=== PATIENT | female | born 1985 | race Caucasian/White ===

== ENCOUNTER 2018-12-12 06:54 | Inpatient (IN) | payer BC ==
[2018-12-12] MEDS ORDERED: Ampicillin 2 GM in Sodium Chloride 0.9% 100 ML IV ONE (07:35)
[2018-12-12] MEDS ORDERED: Nalbuphine 20 MG/ML 1 ML Syringe IVPUSH PRN (07:35)
[2018-12-12] MEDS ORDERED: Sodium Chloride 0.9% 10 ML Syringe FLUSH PRN (07:35)
[2018-12-12] MEDS ORDERED: Ondansetron 4 MG/2 ML SDV IVPUSH PRN ×2 (07:35→12:16)
[2018-12-12] MEDS ORDERED: Oxytocin/Lactated Ringers 10 UNIT/1,000 ML BAG IV SCH ×2 (07:45)
[2018-12-12] MEDS: Lactated Ringers 1,000 ML IV SCH ×2 (07:53→13:25)
[2018-12-12] MEDS ORDERED: LABETALOL 100 MG PO SCH (09:00)
[2018-12-12] MEDS: Ampicillin 1 GM in Sodium Chloride 0.9% 100 ML IV SCH ×2 (11:57→15:55)
[2018-12-12] MEDS ORDERED: Sodium Chloride 0.9% 50 ML SDV ONE (12:00)
[2018-12-12] MEDS ORDERED: Lidocaine 1.5% with EPINEPHrine 1:200,000 5 ML Amp ONE (12:00)
[2018-12-12] MEDS ORDERED: Bupivacaine 0.25% 10 ML SDV ONE (12:00)
[2018-12-12] MEDS ORDERED: fentaNYL 100 MCG/2 ML SDV EPIDUR PRN (12:16)
[2018-12-12] MEDS ORDERED: ePHEDrine 50 MG/ML SDV IVPUSH PRN (12:16)
[2018-12-12] MEDS ORDERED: fentaNYL/Bupivacaine-NS 2 MCG/ML-0.125%/PF 100 ML Bag EPIDUR SCH (12:30)
--- NOTE | 2018-12-12 12:31 | PCM.PREANE ---
Preanesthetic Assessment - Procedure Proposed Procedure: Epidural for Labor - Anesthesia/Transfusion/Family Hx Anesthesia History: Prior Anesthesia Without Reaction Family History of Anesthesia Reaction: No Transfusion History: No Prior Transfusion(s) Intubation History: Unknown - Review of Systems General: No Symptoms Pulmonary: No Symptoms Cardiovascular: No Symptoms Gastrointestinal: Other (GERD ) Neurological: No Symptoms Other: Reports: None - Physical Assessment NPO Status Date: 12/12/18 NPO Status Time: 10:30 Respiratory Rate: 18 Vital Signs: Last Vital Signs Temp 36.6 C 12/12/18 07:09 Pulse 89 12/12/18 07:09 Resp 18 12/12/18 07:09 BP 146/90 H 12/12/18 07:09 Pulse Ox Height: 1.7 m Weight: 111.629 kg Mental Status: Alert & Oriented x3 Airway Class: Mallampati = 2 Dentition: Reports: Normal Dentition ROM/Head Extension: Full Lungs: Clear to Auscultation, Normal Respiratory Effort Cardiovascular: Regular Rate, Regular Rhythm - Lab Values: Laboratory Last Values WBC 10.01 K/mm3 (3.98-10.04) 12/12/18 07:56 RBC 3.60 M/mm3 (3.98-5.22) L 12/12/18 07:56 Hgb 11.5 gm/L (11.2-15.7) 12/12/18 07:56 Hct 33.9 % (34.1-44.9) L 12/12/18 07:56 MCV 94.2 fl (79.4-94.8) 12/12/18 07:56 MCH 31.9 pg (25.6-32.2) 12/12/18 07:56 MCHC 33.9 g/dl (32.2-35.5) 12/12/18 07:56 RDW Std Deviation 47.7 fL (36.4-46.3) H 12/12/18 07:56 Plt Count 216 K/mm3 (182-369) 12/12/18 07:56 MPV 9.6 fl (9.4-12.3) 12/12/18 07:56 Neut % (Auto) 60.4 % (34.0-71.1) 12/12/18 07:56 Lymph % (Auto) 21.0 % (19.3-51.7) 12/12/18 07:56 [place] % (Auto) 12.3 % (4.7-12.5) 12/12/18 07:56 Eos % (Auto) 5.2 (0.7-5.8) 12/12/18 07:56 Baso % (Auto) 0.4 % (0.1-1.2) 12/12/18 07:56 Neut # (Auto) 6.05 K/mm3 (1.56-6.13) 12/12/18 07:56 Lymph # (Auto) 2.10 K/mm3 (1.18-3.74) 12/12/18 07:56 [place] # (Auto) 1.23 K/mm3 (0.24-0.36) H 12/12/18 07:56 Eos # (Auto) 0.52 K/mm3 (0.04-0.36) H 12/12/18 07:56 Baso # (Auto) 0.04 K/mm3 (0.01-0.08) 12/12/18 07:56 - Allergies Allergies/Adverse Reactions: Allergies Allergy/AdvReac Type Severity Reaction Status Date / Time No Known Allergies Allergy Verified 12/12/18 07:10 - Blood Blood Available: No - Anesthesia Plan Pre-Op Medication Ordered: None - Acknowledgements Anesthesia Type Planned: Epidural Pt an Appropriate Candidate for the Planned Anesthesia: Yes Alternatives and Risks of Anesthesia Discussed w Pt/Guardian: Yes Pt/Guardian Understands and Agrees with Anesthesia Plan: Yes PreAnesthesia Questionnaire HEENT History: Reports: Impaired Vision, Other (See Below) Other HEENT History: wears glasses Cardiovascular History: Reports: Other (See Below) Other Cardiovascular History: gestational HTN 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: - Infectious Disease History Infectious Disease History: Reports: Chicken Pox - Past Surgical History GI Surgical History: Reports: Appendectomy - SUBSTANCE USE Smoking Status *Q: Never Smoker Recreational Drug Use History: No - HOME MEDS Home Medications: Home Meds Labetalol [Normodyne] 100 mg PO BID 12/12/18 [History] Vits #93/Iron Fum/FA [ Formula Tablet] 12/12/18 [History] - CURRENT (IN HOUSE) MEDS Current Meds: Current Medications Ampicillin Sodium 1 gm/ Sodium (Chloride) 100 mls @ 200 mls/hr IV Q4H MARIANA Last Admin: 12/12/18 11:57 Dose: 200 mls/hr Lactated Ringer's (Ringers, Lactated) 1,000 mls @ 100 mls/hr IV ASDIRECTED [facility] Last Admin: 12/12/18 07:53 Dose: 100 mls/hr Oxytocin/Lactated Ringer's (Pitocin In Lr 10 Units/1,000 Ml) 10 unit in 1,000 mls @ 500 mls/hr IV .CONTINUOUS MARIANA Oxytocin/Lactated Ringer's (Pitocin In Lr 10 Units/1,000 Ml) 10 unit in 1,000 mls @ 12 mls/hr IV TITRATE MARIANA; Protocol Last Titration: 12/12/18 11:30 Dose: 14 munits/min, 84 mls/hr Nalbuphine HCl (Nubain) 10 mg IVPUSH Q2H PRN PRN Reason: pain Ondansetron HCl (Zofran) 4 mg IVPUSH Q4H PRN PRN Reason: Nausea/Vomiting Labetolol 100 Mg Tab (Ptom) 0 each PO BID [facility] Last Admin: 12/12/18 09:25 Dose: Not Given Sodium Chloride (Saline Flush) 10 ml FLUSH ASDIRECTED PRN PRN Reason: Keep Vein Open Discontinued Medications Ampicillin Sodium 2 gm/ Sodium (Chloride) 100 mls @ 200 mls/hr IV ONETIME ONE Stop: 12/12/18 08:04 Last Admin: 12/12/18 07:53 Dose: 200 mls/hr
--- NOTE | 2018-12-12 18:05 | PCM.LDHP ---
L&D History of Present Illness - General Date of Service: 12/12/18 Admit Problem/Dx: Patient Status Order with Admit Dx/Problem 12/12/18 07:35 Patient Status [ADT] Routine Admission Diagnosis/Problem Admission Diagnosis/Problem Source of Information: Patient History Limitations: Reports: No Limitations - History of Present Illness Introduction:: 33 year old with elevated blood pressures in setting of chronic HTN. IOL. Normal labs. PNC with myself without complications other than elevated bps Improves with: Reports: None Worsens with: Reports: None Associated Symptoms: Reports: N - Related Data Allergies/Adverse Reactions: Allergies Allergy/AdvReac Type Severity Reaction Status Date / Time No Known Allergies Allergy Verified 12/12/18 07:10 Home Medications: Home Meds Labetalol [Normodyne] 100 mg PO BID 12/12/18 [History] Vits #93/Iron Fum/FA [ Formula Tablet] 12/12/18 [History] Past Medical History HEENT History: Reports: Impaired Vision, Other (See Below) Other HEENT History: wears glasses Cardiovascular History: Reports: Other (See Below) Other Cardiovascular History: gestational HTN 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: - Infectious Disease History Infectious Disease History: Reports: Chicken Pox - Past Surgical History GI Surgical History: Reports: Appendectomy Social & Family History - Tobacco Use Smoking Status *Q: Never Smoker - Recreational Drug Use Recreational Drug Use: No H&P Review of Systems - Review of Systems: Review Of Systems: See Below General: Reports: No Symptoms HEENT: Reports: No Symptoms Pulmonary: Reports: No Symptoms Cardiovascular: Reports: No Symptoms Gastrointestinal: Reports: No Symptoms Genitourinary: Reports: No Symptoms Musculoskeletal: Reports: No Symptoms Skin: Reports: No Symptoms Psychiatric: Reports: No Symptoms Neurological: Reports: No Symptoms Hematologic/Lymphatic: Reports: No Symptoms Immunologic: Reports: No Symptoms L&D Exam - Exam Exam: See Below - Vital Signs Vital Signs: Last Vital Signs Temp 36.6 C 12/12/18 07:09 Pulse 89 12/12/18 07:09 Resp 18 12/12/18 12:30 BP 146/90 H 12/12/18 07:09 Pulse Ox Weight: 111.629 kg - OB Specific Contraction Intensity: Moderate to Strong Movement: Active Heart Tones: Present Heart Rate (FHR) Variability: Moderate (6-25 bmp) Presentation: Vertex - Phelps Score Phelps Score Cervix Position: Midposition Phelps Score Consistency: Soft Phelps Score Effacement: >80% Phelps Score Dilation: 3-4 cm Phelps Score 's Station: -3 Phelps Score Total: 8 - Exam General: Alert, Oriented HEENT: PERRLA, Conjunctiva Clear, EACs Clear, EOMI, Hearing Intact, Mucosa Moist & Halley, Nares Patent, Normal Nasal Septum, Posterior Pharynx Clear, TMs Clear Neck: Supple, Trachea Midline Lungs: Clear to Auscultation, Normal Respiratory Effort Cardiovascular: Regular Rate, Regular Rhythm GI/Abdominal Exam: Normal Bowel Sounds, Soft, Non-Tender, No Organomegaly, No Distention, No Abnormal Bruit, No Mass, Pelvis Stable Rectal Exam: Normal Exam, Normal Rectal Tone Back Exam: Normal Inspection, Full Range of Motion Extremities: Normal Inspection, Normal Range of Motion, Non-Tender, No Pedal Edema, Normal Capillary Refill Skin: Warm, Dry, Intact Neurological: Cranial Nerves Intact, Reflexes Equal Bilateral Psychiatric: Alert, Normal Affect, Normal Mood - Patient Data Lab Results Last 24 hrs: Laboratory Results - last 24 hr 12/12/18 Range/Units 07:56 WBC 10.01 (3.98-10.04) K/mm3 RBC 3.60 L (3.98-5.22) M/mm3 Hgb 11.5 (11.2-15.7) gm/L Hct 33.9 L (34.1-44.9) % MCV 94.2 (79.4-94.8) fl MCH 31.9 (25.6-32.2) pg MCHC 33.9 (32.2-35.5) g/dl RDW Std Deviation 47.7 H (36.4-46.3) fL Plt Count 216 (182-369) K/mm3 MPV 9.6 (9.4-12.3) fl Neut % (Auto) 60.4 (34.0-71.1) % Lymph % (Auto) 21.0 (19.3-51.7) % [place] % (Auto) 12.3 (4.7-12.5) % Eos % (Auto) 5.2 (0.7-5.8) Baso % (Auto) 0.4 (0.1-1.2) % Neut # (Auto) 6.05 (1.56-6.13) K/mm3 Lymph # (Auto) 2.10 (1.18-3.74) K/mm3 [place] # (Auto) 1.23 H (0.24-0.36) K/mm3 Eos # (Auto) 0.52 H (0.04-0.36) K/mm3 Baso # (Auto) 0.04 (0.01-0.08) K/mm3 Result Diagrams: 12/12/18 07:56 Problem List Initiated/Reviewed/Updated: Yes Orders Last 24hrs: Active Orders 24 hr Category Date Time Status Patient Status Manage Transfer [TRANSFER] Routine ADT 12/12/18 17:58 Ordered Patient Status [ADT] Routine ADT 12/12/18 07:35 Active Activity as Tolerated [RC] PFP Care 12/12/18 07:35 Active Communication Order [RC] ASDIRECTED Care 12/12/18 07:35 Active Heart Tones [RC] ASDIRECTED Care 12/12/18 07:35 Active Non Stress Test [RC] PER UNIT ROUTINE Care 12/12/18 07:35 Active Notify Provider [RC] PFP Care 12/12/18 07:35 Active Notify Provider [RC] PRN Care 12/12/18 07:35 Active Oxygen Therapy [RC] ASDIRECTED Care 12/12/18 12:16 Active Peripheral IV Care [RC] . DIRECTED Care 12/12/18 07:35 Active Pulse Oximetry [RC] ASDIRECTED Care 12/12/18 12:16 Active Vital Signs [RC] PER UNIT ROUTINE Care 12/12/18 07:35 Active Regular Diet [DIET] Diet 12/12/18 Breakfast Active RAPID PLASMA REAGIN,RPR [CHEM] Routine Lab 12/12/18 07:56 Received Ampicillin 1 gm Med 12/12/18 11:30 Active Sodium Chloride 0.9% [Normal Saline] 100 ml IV Q4H Lactated Ringers [Ringers, Lactated] 1,000 ml Med 12/12/18 07:45 Active IV ASDIRECTED Nalbuphine [Nubain] Med 12/12/18 07:35 Active 10 mg IVPUSH Q2H PRN Ondansetron [Zofran] Med 12/12/18 12:16 Active 4 mg IVPUSH ONETIME PRN Ondansetron [Zofran] Med 12/12/18 07:35 Active 4 mg IVPUSH Q4H PRN Oxytocin/Lactated Ringers [Pitocin in LR 10 Units/1,000 Med 12/12/18 07:45 Active ML] 10 unit in 1,000 ml IV .CONTINUOUS Oxytocin/Lactated Ringers [Pitocin in LR 10 Units/1,000 Med 12/12/18 07:45 Active ML] 10 unit in 1,000 ml IV TITRATE Patient's Own Medication [Ptom] Med 12/12/18 09:00 Active 0 each PO BID Sodium Chloride 0.9% [Saline Flush] Med 12/12/18 07:35 Active 10 ml FLUSH ASDIRECTED PRN ePHEDrine [ePHEDrine sulfate] Med 12/12/18 12:16 Active 5 mg IVPUSH ASDIRECTED PRN fentaNYL [Sublimaze] Med 12/12/18 12:16 Active 100 mcg EPIDUR Q3H PRN fentaNYL/Bupivacaine/NS/PF [[id number]-KN 2 MCG/ML- Med 12/12/18 12:30 Active 0.125%] 100 ml EPIDUR ASDIRECTED Electronic Heart Tones Ext w TOCO [WOMSER] Oth 12/12/18 07:35 Ordered Routine Electronic Heart Tones Internal [WOMSER] Per Unit Oth 12/12/18 07:35 Ordered Routine Peripheral IV Insertion Adult [OM.PC] Routine Oth 12/12/18 07:35 Ordered Resuscitation Status Routine Resus Stat 12/12/18 07:35 Ordered Medication Orders Ephedrine Sulfate (Ephedrine Sulfate) 5 mg IVPUSH ASDIRECTED PRN PRN Reason: Hypotension Fentanyl (Sublimaze) 100 mcg EPIDUR Q3H PRN PRN Reason: Pain Fentanyl/Bupivacaine HCl (Crzotaru-Qnyke-Gv 2 Mcg/Ml-0.125%) 100 ml EPIDUR ASDIRECTED MARIANA Ampicillin Sodium 1 gm/ Sodium (Chloride) 100 mls @ 200 mls/hr IV Q4H MARIANA Last Admin: 12/12/18 15:55 Dose: 200 mls/hr Infusion: 12/12/18 12:27 Dose: 200 mls/hr Admin: 12/12/18 11:57 Dose: 200 mls/hr Lactated Ringer's (Ringers, Lactated) 1,000 mls @ 100 mls/hr IV ASDIRECTED MARIANA Last Admin: 12/12/18 13:25 Dose: 100 mls/hr Infusion: 12/12/18 13:25 Dose: 100 mls/hr Admin: 12/12/18 07:53 Dose: 100 mls/hr Oxytocin/Lactated Ringer's (Pitocin In Lr 10 Units/1,000 Ml) 10 unit in 1,000 mls @ 500 mls/hr IV .CONTINUOUS MARIANA Oxytocin/Lactated Ringer's (Pitocin In Lr 10 Units/1,000 Ml) 10 unit in 1,000 mls @ 12 mls/hr IV TITRATE MARIANA; Protocol Last Titration: 12/12/18 17:43 Dose: 500 mls/hr Titration: 12/12/18 16:53 Dose: 10 munits/min, 60 mls/hr Titration: 12/12/18 15:16 Dose: 16 munits/min, 96 mls/hr Titration: 12/12/18 11:30 Dose: 14 munits/min, 84 mls/hr Titration: 12/12/18 10:43 Dose: 12 munits/min, 72 mls/hr Titration: 12/12/18 10:19 Dose: 10 munits/min, 60 mls/hr Titration: 12/12/18 09:36 Dose: 8 munits/min, 48 mls/hr Titration: 12/12/18 08:58 Dose: 6 munits/min, 36 mls/hr Titration: 12/12/18 08:29 Dose: 4 munits/min, 24 mls/hr Admin: 12/12/18 07:54 Dose: 2 munits/min, 12 mls/hr Nalbuphine HCl (Nubain) 10 mg IVPUSH Q2H PRN PRN Reason: pain Ondansetron HCl (Zofran) 4 mg IVPUSH Q4H PRN PRN Reason: Nausea/Vomiting Ondansetron HCl (Zofran) 4 mg IVPUSH ONETIME PRN PRN Reason: Nausea/Vomiting Labetolol 100 Mg Tab (Ptom) 0 each PO BID [facility] Last Admin: 12/12/18 09:25 Dose: Sodium Chloride (Saline Flush) 10 ml FLUSH ASDIRECTED PRN PRN Reason: Keep Vein Open Assessment/Plan Comment:: 37 week induction GBS positive Pitocin then arom
--- NOTE | 2018-12-12 18:07 | PCM.SN ---
- Free Text/Narrative Note: Stage I - Patient presented for induction of labor. Pitocin then AROM clear fluid. Progressed to complete with normal to mild range bps and reassuring fht. Stage II - of viable male. Weight 3410g. 03/17 [id number]. Head delivered in a controlled manner over intact perineum. Body and shoulders atraumatically. Positive cry. Cord clamped and cut. Stage III - of intact placenta. EBL 400. Small 1st degree laceration repaired with 3-0 monocril.
[2018-12-12] MEDS ORDERED: Benzocaine/Menthol 20%-0.5% Spray 56 GM Canister TOP PRN (18:38)
[2018-12-12] MEDS ORDERED: Lanolin 100% Cream 7 GM Tube TOP PRN (18:38)
[2018-12-12] MEDS ORDERED: Witch Hazel Medicated Pads 40/Jar TOP PRN (18:38)
[2018-12-12] MEDS: Ibuprofen 600 MG Tab PO PRN (20:09)
[2018-12-12] MEDS ORDERED: Measles, Mumps & Rubella Vaccine 0.5 ML SDV SUBCUT ONE (22:15)
[2018-12-13] MEDS: Ibuprofen 600 MG Tab PO PRN ×3 (04:25→17:28)
--- NOTE | 2018-12-13 07:25 | PCM.PNPP ---
- General Info Date of Service: 12/13/18 Functional Status: Reports: Pain Controlled, Tolerating Diet, Ambulating, Urinating - Review of Systems General: Reports: No Symptoms Pulmonary: Reports: No Symptoms Cardiovascular: Reports: No Symptoms Gastrointestinal: Reports: No Symptoms Genitourinary: Reports: No Symptoms Musculoskeletal: Reports: No Symptoms Neurological: Reports: No Symptoms - Patient Data Vital Signs - Most Recent: Last Vital Signs Temp 37.2 C 12/13/18 04:13 Pulse 71 12/13/18 04:13 Resp 16 12/13/18 04:13 BP 131/88 12/13/18 04:13 Pulse Ox 96 12/13/18 04:13 Weight - Most Recent: 111.629 kg I&O - Last 24 Hours: Intake & Output 12/12/18 12/13/18 12/13/18 22:59 06:59 14:59 Intake Total 49105 Output Total 700 Balance 80410 Lab Results - Last 24 Hours: Laboratory Results - last 24 hr 12/12/18 12/12/18 Range/Units 07:56 07:56 WBC 10.01 (3.98-10.04) K/mm3 RBC 3.60 L (3.98-5.22) M/mm3 Hgb 11.5 (11.2-15.7) gm/L Hct 33.9 L (34.1-44.9) % MCV 94.2 (79.4-94.8) fl MCH 31.9 (25.6-32.2) pg MCHC 33.9 (32.2-35.5) g/dl RDW Std Deviation 47.7 H (36.4-46.3) fL Plt Count 216 (182-369) K/mm3 MPV 9.6 (9.4-12.3) fl Neut % (Auto) 60.4 (34.0-71.1) % Lymph % (Auto) 21.0 (19.3-51.7) % [place] % (Auto) 12.3 (4.7-12.5) % Eos % (Auto) 5.2 (0.7-5.8) Baso % (Auto) 0.4 (0.1-1.2) % Neut # (Auto) 6.05 (1.56-6.13) K/mm3 Lymph # (Auto) 2.10 (1.18-3.74) K/mm3 [place] # (Auto) 1.23 H (0.24-0.36) K/mm3 Eos # (Auto) 0.52 H (0.04-0.36) K/mm3 Baso # (Auto) 0.04 (0.01-0.08) K/mm3 RPR Non-reactive (NONREACTIVE) Med Orders - Current: Current Medications Benzocaine/Menthol (Dermoplast Pain Relief [place]) 0 gm TOP ASDIRECTED PRN PRN Reason: Perineal Comfort Measure Last Admin: 12/12/18 20:09 Dose: 1 canister Emollient Ointment (Lansinoh Hpa) 0 gm TOP ASDIRECTED PRN PRN Reason: Sore Nipples Ibuprofen (Motrin) 600 mg PO Q6H PRN PRN Reason: Mild pain or fever Last Admin: 12/13/18 04:25 Dose: 600 mg Witch Shanon (Tucks) 1 pad TOP ASDIRECTED PRN PRN Reason: Pain Last Admin: 12/12/18 20:09 Dose: 1 tub Discontinued Medications Ephedrine Sulfate (Ephedrine Sulfate) 5 mg IVPUSH ASDIRECTED PRN PRN Reason: Hypotension Fentanyl (Sublimaze) 100 mcg EPIDUR Q3H PRN PRN Reason: Pain Fentanyl/Bupivacaine HCl (Vpykrpce-Yivby-Nr 2 Mcg/Ml-0.125%) 100 ml EPIDUR ASDIRECTED MARIANA Ampicillin Sodium 2 gm/ Sodium (Chloride) 100 mls @ 200 mls/hr IV ONETIME ONE Stop: 12/12/18 08:04 Last Admin: 12/12/18 07:53 Dose: 200 mls/hr Ampicillin Sodium 1 gm/ Sodium (Chloride) 100 mls @ 200 mls/hr IV Q4H MARIANA Last Admin: 12/12/18 15:55 Dose: 200 mls/hr Lactated Ringer's (Ringers, Lactated) 1,000 mls @ 100 mls/hr IV ASDIRECTED MARIANA Last Admin: 12/12/18 13:25 Dose: 100 mls/hr Oxytocin/Lactated Ringer's (Pitocin In Lr 10 Units/1,000 Ml) 10 unit in 1,000 mls @ 500 mls/hr IV .CONTINUOUS MARIANA Last Admin: 04/05/19 18:16 Dose: 500 mls/hr Oxytocin/Lactated Ringer's (Pitocin In Lr 10 Units/1,000 Ml) 10 unit in 1,000 mls @ 12 mls/hr IV TITRATE MARIANA; Protocol Last Titration: 12/12/18 17:43 Dose: 500 mls/hr Measles/Mumps/Rubella Vaccine Live (M-M-R Ii Vaccine) 0.5 ml SUBCUT .ONCE ONE Stop: 12/12/18 22:16 Last Admin: 12/13/18 04:27 Dose: 0.5 ml Nalbuphine HCl (Nubain) 10 mg IVPUSH Q2H PRN PRN Reason: pain Ondansetron HCl (Zofran) 4 mg IVPUSH Q4H PRN PRN Reason: Nausea/Vomiting Ondansetron HCl (Zofran) 4 mg IVPUSH ONETIME PRN PRN Reason: Nausea/Vomiting Labetolol 100 Mg Tab (Ptom) 0 each PO BID MARIANA Last Admin: 12/12/18 09:25 Dose: Not Given Sodium Chloride (Saline Flush) 10 ml FLUSH ASDIRECTED PRN PRN Reason: Keep Vein Open - Interaction Disposition, : [place] in Room with Family Infant Interaction: Holding Infant Infant Feeding: Attempted ; Nursed Fair/Poor, Bottle Fed Infant Support Person: - Recovery Exam Fundal Tone: Firm Fundal Level: 1 Fingerbreadths Below Umbilicus Fundal Placement: Midline Lochia Amount: Small Lochia Color: Rubra/Red Perineum Description: Edematous, Other (see below) Other Perinuem Description: 1st degree Episiotomy/Laceration: Approximated Bladder Status: Voiding Urinary Elimination: Voided - Exam General: Alert, Oriented, Cooperative GI/Abdominal Exam: Soft, Non-Tender Extremities: Normal Inspection Skin: Warm, Dry, Intact - Problem List & Annotations (1) Chronic hypertension SNOMED Code(s): 84834258 Code(s): I10 - ESSENTIAL (PRIMARY) HYPERTENSION Status: Acute Current Visit: Yes (2) 37 weeks gestation of SNOMED Code(s): 21709688 Code(s): Z3A.37 - 37 WEEKS GESTATION OF Status: Acute Current Visit: Yes (3) Vaginal delivery SNOMED Code(s): 293921771 Code(s): O80 - ENCOUNTER FOR FULL-TERM UNCOMPLICATED DELIVERY Status: Acute Current Visit: Yes - Problem List Review Problem List Initiated/Reviewed/Updated: Yes - Assessment Assessment:: 33 y/o G3 now P3003 PPD#1 from - Plan Plan:: * Routine cares * Encourage breast feeding * Continue home labetalol, 100 mg, BID * Discharge home tomorrow
[2018-12-13] MEDS: Labetalol 100 MG Tab PO SCH ×2 (09:00→21:48)
[2018-12-13] MEDS ORDERED: Acetaminophen 325 MG Tab PO PRN (10:34)
[2018-12-14] MEDS: Ibuprofen 600 MG Tab PO PRN ×2 (03:11→10:38)
--- NOTE | 2018-12-14 07:33 | PCM.DCSUM1 ---
Discharge Summary - Discharge Data Discharge Date: 12/14/18 Discharge Disposition: Home, Self-Care 01 Condition: Good - Discharge Diagnosis/Problem(s) (1) Chronic hypertension SNOMED Code(s): 75751313 ICD Code: I10 - ESSENTIAL (PRIMARY) HYPERTENSION Status: Acute Current Visit: Yes (2) 37 weeks gestation of SNOMED Code(s): 62932085 ICD Code: Z3A.37 - 37 WEEKS GESTATION OF Status: Acute Current Visit: Yes (3) Vaginal delivery SNOMED Code(s): 178573218 ICD Code: O80 - ENCOUNTER FOR FULL-TERM UNCOMPLICATED DELIVERY Status: Acute Current Visit: Yes - Patient Summary/Data Complications: None Consults: None Recommended Follow-up Testing/Procedures: Follow up in 1-2 weeks for BP check Hospital Course: 33 y/o G 3 P2002 presented for IOL at 37 wks due to worsening CHTN. This was done with pitocin/AROM. She underwent an uncomplicated . See delivery note. her BP's were normal to mild range on her home dose of labetalol 100 mg BID. She was discharged home on PPD#2 - Patient Instructions Diet: Regular Diet as Tolerated Activity: As Tolerated Activity, Other: Pelvic Rest for 6 weeks Showering/Bathing: May Shower Showering/Bathing, Other: May bathe Notify Provider of: Fever, Increased Pain, Swelling and Redness, Drainage, Nausea and/or Vomiting - Discharge Plan *PRESCRIPTION DRUG MONITORING PROGRAM REVIEWED*: Not Applicable *COPY OF PRESCRIPTION DRUG MONITORING REPORT IN PATIENT ROLAND: Not Applicable Home Medications: Home Meds Ibuprofen [Motrin] 600 mg PO Q6H PRN tablet 12/12/18 [Rx] Labetalol [Normodyne] 100 mg PO BID 12/12/18 [History] Vits #93/Iron Fum/FA [ Formula Tablet] 12/12/18 [History] Referrals: Haleigh Orta MD [Primary Care Provider] - (1-2 weeks for BP check) - Discharge Summary/Plan Comment DC Time >30 min.: No - Patient Data Vitals - Most Recent: Last Vital Signs Temp 36.4 C 12/14/18 03:14 Pulse 80 12/14/18 03:14 Resp 15 12/14/18 03:14 BP 112/74 12/14/18 03:14 Pulse Ox 98 04/07/19 03:14 Weight - Most Recent: 111.629 kg Med Orders - Current: Current Medications Acetaminophen (Tylenol) 650 mg PO Q6H PRN PRN Reason: Pain Benzocaine/Menthol (Dermoplast Pain Relief [place]) 0 gm TOP ASDIRECTED PRN PRN Reason: Perineal Comfort Measure Last Admin: 12/12/18 20:09 Dose: 1 canister Emollient Ointment (Lansinoh Hpa) 0 gm TOP ASDIRECTED PRN PRN Reason: Sore Nipples Ibuprofen (Motrin) 600 mg PO Q6H PRN PRN Reason: Mild pain or fever Last Admin: 12/14/18 03:11 Dose: 600 mg Labetalol HCl (Normodyne) 100 mg PO BID [facility] Last Admin: 12/13/18 21:48 Dose: Not Given Witch Shanon (Tucks) 1 pad TOP ASDIRECTED PRN PRN Reason: Pain Last Admin: 12/12/18 20:09 Dose: 1 tub Discontinued Medications Ephedrine Sulfate (Ephedrine Sulfate) 5 mg IVPUSH ASDIRECTED PRN PRN Reason: Hypotension Fentanyl (Sublimaze) 100 mcg EPIDUR Q3H PRN PRN Reason: Pain Fentanyl/Bupivacaine HCl (Dxnoaerq-Ebump-Xm 2 Mcg/Ml-0.125%) 100 ml EPIDUR ASDIRECTED [facility] Ampicillin Sodium 2 gm/ Sodium (Chloride) 100 mls @ 200 mls/hr IV ONETIME ONE Stop: 12/12/18 08:04 Last Admin: 12/12/18 07:53 Dose: 200 mls/hr Ampicillin Sodium 1 gm/ Sodium (Chloride) 100 mls @ 200 mls/hr IV Q4H [facility] Last Admin: 12/12/18 15:55 Dose: 200 mls/hr Lactated Ringer's (Ringers, Lactated) 1,000 mls @ 100 mls/hr IV ASDIRECTED [facility]IANA Last Admin: 12/12/18 13:25 Dose: 100 mls/hr Oxytocin/Lactated Ringer's (Pitocin In Lr 10 Units/1,000 Ml) 10 unit in 1,000 mls @ 500 mls/hr IV .CONTINUOUS MARIANA Last Admin: 12/12/18 18:16 Dose: 500 mls/hr Oxytocin/Lactated Ringer's (Pitocin In Lr 10 Units/1,000 Ml) 10 unit in 1,000 mls @ 12 mls/hr IV TITRATE MARIANA; Protocol Last Titration: 12/12/18 17:43 Dose: 500 mls/hr Measles/Mumps/Rubella Vaccine Live (M-M-R Ii Vaccine) 0.5 ml SUBCUT .ONCE ONE Stop: 12/12/18 22:16 Last Admin: 12/13/18 04:27 Dose: 0.5 ml Nalbuphine HCl (Nubain) 10 mg IVPUSH Q2H PRN PRN Reason: pain Ondansetron HCl (Zofran) 4 mg IVPUSH Q4H PRN PRN Reason: Nausea/Vomiting Ondansetron HCl (Zofran) 4 mg IVPUSH ONETIME PRN PRN Reason: Nausea/Vomiting Labetolol 100 Mg Tab (Ptom) 0 each PO BID [facility] Last Admin: 12/12/18 09:25 Dose: Not Given Sodium Chloride (Saline Flush) 10 ml FLUSH ASDIRECTED PRN PRN Reason: Keep Vein Open
--- NOTE | 2018-12-14 07:33 | PCM.PNPP ---
- General Info Date of Service: 12/14/18 Functional Status: Reports: Pain Controlled, Tolerating Diet, Ambulating, Urinating - Review of Systems General: Reports: No Symptoms Pulmonary: Reports: No Symptoms Cardiovascular: Reports: No Symptoms Gastrointestinal: Reports: No Symptoms Genitourinary: Reports: No Symptoms Musculoskeletal: Reports: No Symptoms Neurological: Reports: No Symptoms - Patient Data Vital Signs - Most Recent: Last Vital Signs Temp 36.4 C 12/14/18 03:14 Pulse 80 12/14/18 03:14 Resp 15 12/14/18 03:14 BP 112/74 12/14/18 03:14 Pulse Ox 98 12/14/18 03:14 Weight - Most Recent: 111.629 kg Med Orders - Current: Current Medications Acetaminophen (Tylenol) 650 mg PO Q6H PRN PRN Reason: Pain Benzocaine/Menthol (Dermoplast Pain Relief [place]) 0 gm TOP ASDIRECTED PRN PRN Reason: Perineal Comfort Measure Last Admin: 12/12/18 20:09 Dose: 1 canister Emollient Ointment (Lansinoh Hpa) 0 gm TOP ASDIRECTED PRN PRN Reason: Sore Nipples Ibuprofen (Motrin) 600 mg PO Q6H PRN PRN Reason: Mild pain or fever Last Admin: 12/14/18 03:11 Dose: 600 mg Labetalol HCl (Normodyne) 100 mg PO BID [facility] Last Admin: 12/13/18 21:48 Dose: Not Given Witch Shanon (Tucks) 1 pad TOP ASDIRECTED PRN PRN Reason: Pain Last Admin: 12/12/18 20:09 Dose: 1 tub Discontinued Medications Ephedrine Sulfate (Ephedrine Sulfate) 5 mg IVPUSH ASDIRECTED PRN PRN Reason: Hypotension Fentanyl (Sublimaze) 100 mcg EPIDUR Q3H PRN PRN Reason: Pain Fentanyl/Bupivacaine HCl (Jqgolnmo-Cjmth-Na 2 Mcg/Ml-0.125%) 100 ml EPIDUR ASDIRECTED [facility] Ampicillin Sodium 2 gm/ Sodium (Chloride) 100 mls @ 200 mls/hr IV ONETIME ONE Stop: 12/12/18 08:04 Last Admin: 12/12/18 07:53 Dose: 200 mls/hr Ampicillin Sodium 1 gm/ Sodium (Chloride) 100 mls @ 200 mls/hr IV Q4H [facility] Last Admin: 12/12/18 15:55 Dose: 200 mls/hr Lactated Ringer's (Ringers, Lactated) 1,000 mls @ 100 mls/hr IV ASDIRECTED [facility] Last Admin: 12/12/18 13:25 Dose: 100 mls/hr Oxytocin/Lactated Ringer's (Pitocin In Lr 10 Units/1,000 Ml) 10 unit in 1,000 mls @ 500 mls/hr IV .CONTINUOUS MARIANA Last Admin: 12/12/18 18:16 Dose: 500 mls/hr Oxytocin/Lactated Ringer's (Pitocin In Lr 10 Units/1,000 Ml) 10 unit in 1,000 mls @ 12 mls/hr IV TITRATE MARIANA; Protocol Last Titration: 12/12/18 17:43 Dose: 500 mls/hr Measles/Mumps/Rubella Vaccine Live (M-M-R Ii Vaccine) 0.5 ml SUBCUT .ONCE ONE Stop: 12/12/18 22:16 Last Admin: 12/13/18 04:27 Dose: 0.5 ml Nalbuphine HCl (Nubain) 10 mg IVPUSH Q2H PRN PRN Reason: pain Ondansetron HCl (Zofran) 4 mg IVPUSH Q4H PRN PRN Reason: Nausea/Vomiting Ondansetron HCl (Zofran) 4 mg IVPUSH ONETIME PRN PRN Reason: Nausea/Vomiting Labetolol 100 Mg Tab (Ptom) 0 each PO BID [facility] Last Admin: 12/12/18 09:25 Dose: Not Given Sodium Chloride (Saline Flush) 10 ml FLUSH ASDIRECTED PRN PRN Reason: Keep Vein Open - Interaction Disposition, : Rogers in Room with Family Interaction: Holding Feeding: Attempted ; Nursed Fair/Poor, Bottle Fed Support Person: - Recovery Exam Fundal Tone: Firm Fundal Level: 1 Fingerbreadths Below Umbilicus Fundal Placement: Midline Lochia Amount: Small Lochia Color: Rubra/Red Perineum Description: Other (see below) Other Perinuem Description: 1st degree laceration with repair Episiotomy/Laceration: Approximated Bladder Status: Nonpalpable, Voiding Urinary Elimination: Voided - Exam General: Alert, Oriented, Cooperative GI/Abdominal Exam: Soft, Non-Tender Extremities: Normal Inspection Skin: Warm, Dry, Intact - Problem List & Annotations (1) Chronic hypertension SNOMED Code(s): 88602690 Code(s): I10 - ESSENTIAL (PRIMARY) HYPERTENSION Status: Acute Current Visit: Yes (2) 37 weeks gestation of SNOMED Code(s): 80877393 Code(s): Z3A.37 - 37 WEEKS GESTATION OF Status: Acute Current Visit: Yes (3) Vaginal delivery SNOMED Code(s): 027652940 Code(s): O80 - ENCOUNTER FOR FULL-TERM UNCOMPLICATED DELIVERY Status: Acute Current Visit: Yes - Problem List Review Problem List Initiated/Reviewed/Updated: Yes - My Orders Last 24 Hours: My Active Orders 12/13/18 09:00 Labetalol [Normodyne] 100 mg PO BID 12/13/18 10:34 Acetaminophen [Tylenol] 650 mg PO Q6H PRN 12/13/18 Dinner Regular Diet [DIET] 12/14/18 07:33 Ready for Discharge [RC] PER UNIT ROUTINE - Assessment Assessment:: 33 y/o G3 now P3003 PPD#2 from - Plan Plan:: * Routine cares * Encourage breast feeding * Continue home labetalol, 100 mg, BID * Discharge home today
[2018-12-14] MEDS: Labetalol 100 MG Tab PO SCH (09:05)
--- NOTE | 2018-12-14 18:08 | PCM48HPAN ---
Post Anesthesia Note - EVALUATION WITHIN 48HRS OF ANESTHETIC Vital Signs in Normal Range: Yes Patient Participated in Evaluation: Yes Respiratory Function Stable: Yes Airway Patent: Yes Cardiovascular Function Stable: Yes Hydration Status Stable: Yes Pain Control Satisfactory: Yes Nausea and Vomiting Control Satisfactory: Yes Mental Status Recovered: Yes Pulse Rate: 83 Resp Rate: 18 Temperature: 36.8 C Blood Pressure: 139/66 - COMMENTS/OBSERVATIONS Free Text/Narrative:: Chart reviewed and discussed case with OB. No known issues r/t epidural placement upon patient discharge.
== END 2018-12-14 12:10 | disposition home or self-care (01) | DRG 560 ==
LOC: JD.OB 06:54 → OBSVTOIN 17:43 → JD.OB 17:43
PROVIDERS: ADMIT Obstetrics & Gynecology; ATTEND Obstetrics & Gynecology
PROC: 3E033VJ Introduction of Other Hormone into Peripheral Vein, Percutaneous Approach (ICD-10-PCS; principal; 2018-12-12)
PROC: 0HQ9XZZ Repair Perineum Skin, External Approach (ICD-10-PCS; principal; 2018-12-12)
PROC: 10E0XZZ Delivery of Products of Conception, External Approach (ICD-10-PCS; principal; 2018-12-12)
PROC: 10907ZC Drainage of Amniotic Fluid, Therapeutic from Products of Conception, Via Natural or Artificial Opening (ICD-10-PCS; principal; 2018-12-12)
PROC: 3E0R3BZ Introduction of Anesthetic Agent into Spinal Canal, Percutaneous Approach (ICD-10-PCS; 2018-12-12)
PROC: 00HU33Z Insertion of Infusion Device into Spinal Canal, Percutaneous Approach (ICD-10-PCS; 2018-12-12)
PROC: 3E0234Z Introduction of Serum, Toxoid and Vaccine into Muscle, Percutaneous Approach (ICD-10-PCS; 2018-12-13)
DX: O10.92 Unspecified pre-existing hypertension complicating childbirth (principal); Z37.0 Single live birth; O99.824 Streptococcus B carrier state complicating childbirth; Z3A.37 37 weeks gestation of pregnancy; O70.0 First degree perineal laceration during delivery; Z23 Encounter for immunization
CPT/HCPCS: 01967; 36415; 51702; 59025; 59409; 85025; 86592; 90471; 90707; A9270-GY; J0290; J2590; J3490; J7030; J7120